=== PATIENT | male | born 1975 | race Caucasian/White ===

== ENCOUNTER 2020-03-10 06:00 | Emergency (ER) | payer BC ==
[~2020-03-10] VITALS: Ht 172.7 cm; Wt 141.1 kg
[2020-03-10 06:06] VITALS: BP 104/71
== END 2020-03-10 06:34 | disposition home or self-care (01) ==
LOC: MED 06:00
DX: R07.9 Chest pain, unspecified (principal); F41.9 Anxiety disorder, unspecified
CPT/HCPCS: 99281; 99283

== ENCOUNTER 2020-10-29 23:58 | Emergency (ER) | payer BC ==
[~2020-10-29] VITALS: Ht 175.3 cm; Wt 143.8 kg
[2020-10-30 00:08] VITALS: BP 126/79
--- NOTE | 2020-10-30 00:16 | NUR ---
PT AMBULATED TO BED 10.
--- NOTE | 2020-10-30 00:18 | NUR ---
ERMD AT BEDSIDE EVALUATING PATIENT.
[2020-10-30] MEDS ORDERED: NAPR-54 PO (00:21)
[2020-10-30] MEDS ORDERED: AMOX-1000 PO (00:21)
--- NOTE | 2020-10-30 00:22 | NUR ---
PT SEEN AND TREATED BY ER MD NO NURSING INTERVENTIONS AT THIS TIME. PT DISCHARGED BY ER MD DR. SANDOVAL.
--- NOTE | 2020-10-30 00:24 | NUR ---
Patient discharged BY ER MD NG with v/s stable. Written and verbal after care instructions given and explained. Patient alert, oriented and verbalized understanding of instructions. Ambulatory with steady gait. All questions addressed prior to discharge. ID band removed. Patient advised to follow up with PMD. Rx of NAPROSYN & AUGMENTIN given. Patient educated on indication of medication including possible reaction and side effects. Opportunity to ask questions provided and answered.
[2020-10-30 00:26] VITALS: BP 126/79
== END 2020-10-30 00:26 | disposition home or self-care (01) ==
LOC: MED 23:58
DX: H66.93 Otitis media, unspecified, bilateral (principal); Z79.899 Other long term (current) drug therapy
CPT/HCPCS: 99283